=== PATIENT | female | born 1965 | race Two or more races ===

== ENCOUNTER 2020-08-09 15:02 | Emergency (ER) | payer OTHER ==
[~2020-08-09] VITALS: Ht 152.4 cm; Wt 81.6 kg
--- NOTE | 2020-08-09 15:31 | NUR ---
PT AMBULATED TO ROOM FROM TRIAGE. PT STATED THAT SHE WENT TO TODAY FOR NASAL/SINUS CONGESTION VOR 2 WEEKS. BP AT WAS 230/100. PT WAS SENT TO ER. PT DENIES ANY HISTORY OF HTN. PT DENIES ANY CP, N/V, SOB OPR FEVER. PT STATED THAT SHE THINKS SHE IS ALSO GOING THROUGH MENOPAUSE AND HAS BEEN HAVING HOT FLASHES.
[2020-08-09] MEDS ORDERED: LABETALOL 5MG/ML, 20ML ONE (16:13)
--- NOTE | 2020-08-09 16:27 | NUR ---
PT RESTING COMFORTABLY IN [facility]. CALL LIGHT WITHIN REACH.
[2020-08-09] MEDS ORDERED: LABETALOL 5MG/ML, 20ML IVPush ONE (16:30)
[2020-08-09 16:41] LABS: ALBUMIN 4.2 g/dL (3.4-5.0); ANION GAP 10 mmol/L (5-15); BASOPHILS % (AUTO) 0 % (0-1); CALCIUM 9.3 mg/dL (8.5-10.1); CHLORIDE 103 mmol/L (98-107); CREATININE 0.68 mg/dL (0.55-1.02); EOSINOPHILS % (AUTO) 0 % (1-7); LYMPHOCYTES % (AUTO) 21 % (22-44); MEAN CORPUSCULAR HEMOGLOBIN 32.5 pg (27.0-34.8); MEAN CORPUSCULAR HGB CONC 34.7 g/dL (32.4-35.8); MEAN PLATELET VOLUME 8.5 fL (7.4-10.4); MONOCYTES % (AUTO) 8 % (2-9); NEUTROPHILS % (AUTO) 71 % (42-75); PLATELET COUNT 275 x10^3/uL (130-400); RED BLOOD COUNT 5.77 x10^6/uL (3.82-5.3); RED CELL DISTRIBUTION WIDTH 13.6 % (9.6-15.2)
[2020-08-09 16:45] LABS: TROPONIN I < 0.015 ng/mL (0.000-0.045)
--- NOTE | 2020-08-09 17:26 | NUR ---
BREAK RN. PT RESTING IN BED, NO DISTRESS. NEEDS ADDRESSED. CONT TO MONITOR.
[2020-08-09 17:45] VITALS: BP 175/85
--- NOTE | 2020-08-09 18:47 | NUR ---
DISCHARGE INSTRUCTIONS REVIEWED WITH PT. ALL QUESTIONS ANSWERED AT THIS TIME.
== END 2020-08-09 18:52 | disposition home or self-care (01) ==
LOC: ED 18:50
DX: I16.9 Hypertensive crisis, unspecified (principal); R94.31 Abnormal electrocardiogram [ECG] [EKG]
CPT/HCPCS: 36415; 80048; 82040; 84484; 85025; 93005; 96374; 99284